=== PATIENT | female | born 1985 | race Caucasian/White ===

== ENCOUNTER 2017-10-27 05:30 | Inpatient (IN) | payer OTHER ==
[2017-10-27] MEDS ORDERED: RINGERS SOLUTION,LACTATED 1,000 ML IV ONE (06:28)
[2017-10-27] MEDS ORDERED: CITRIC ACID/SODIUM CITRATE 30 ML SOLUTION UDCUP PO ONE (06:30)
[2017-10-27] MEDS ORDERED: METOCLOPRAMIDE HCL 5 MG/ML 2 ML VIAL IVP ONE (06:30)
[2017-10-27 06:46] VITALS: BP 111/65
[2017-10-27 07:23] LABS: BASOPHILS % (AUTO) 0.2 % (0.0-2.0); EOSINOPHILS % (AUTO) 0.5 % (1.0-6.0); HEMATOCRIT 33.4 % (36-46); HEMOGLOBIN 11.7 g/dL (12.0-16.0); LYMPHOCYTES # (AUTO) 1.3 K/uL (1.0-4.8); LYMPHOCYTES % (AUTO) 14.8 % (22.0-44.0); MEAN CORPUSCULAR HEMOGLOBIN 32.7 pg (26.0-34.0); MEAN CORPUSCULAR VOLUME 93 fL (80-100); MONOCYTES # (AUTO) 0.6 K/uL (0.1-1.0); MONOCYTES % (AUTO) 6.4 % (2.0-9.0); NEUTROPHILS % (AUTO) 78.1 % (40.0-70.0); RED BLOOD CELL COUNT(AUTO) 3.58 MIL/uL (4.00-5.20); RED CELL DISTRIBUTION WIDTH 13.3 % (11.5-14.5)
[2017-10-27] MEDS ORDERED: LANOLIN 7 GM OINTMENT TP PRN (09:00)
[2017-10-27] MEDS ORDERED: ACETAMINOPHEN/CODEINE 300-30 MG TABLET PO PRN ×2 (09:00)
[2017-10-27] MEDS ORDERED: DEXTROSE 5%-0.45% SODIUM CHL 1,000 ML IV ONE (09:52)
[2017-10-27] MEDS ORDERED: MEPERIDINE-PF 25 MG/ML SYRINGE IVP PRN (10:00)
[2017-10-27] MEDS ORDERED: ONDANSETRON HCL 4 MG/2 ML VIAL IVP PRN ×2 (10:00)
[2017-10-27] MEDS ORDERED: DiphenhydrAMINE HCL 50 MG/ML VIAL IVP PRN (10:00)
[2017-10-27] MEDS ORDERED: NALOXONE HCL 0.4 MG/ML VIAL IVP PRN (10:00)
[2017-10-27] MEDS ORDERED: NALBUPHINE HCL 10 MG/ML VIAL IVP PRN ×3 (10:00)
[2017-10-27] MEDS ORDERED: MORPHINE SULFATE 10 MG/ML SYRINGE IVP PRN (10:00)
[2017-10-27] MEDS ORDERED: FentaNYL CITRATE-PF 100 MCG/2 ML VIAL IVP PRN ×2 (10:00)
[2017-10-27] MEDS: DEXTROSE 5%-0.45% SODIUM CHL 1,000 ML IV SCH ×4 (10:27→23:20)
[2017-10-27] MEDS: ACETAMINOPHEN 1000 MG/ISO-OSM 100 ML IV SCH ×2 (10:29→18:28)
[2017-10-27] MEDS ORDERED: OXYGEN THERAPY IH SCH ×2 (20:00)
[2017-10-27] MEDS: MAGNESIUM HYDROXIDE SUSPENSION 30 ML UDCUP PO SCH (21:23)
[2017-10-28] MEDS: ACETAMINOPHEN 1000 MG/ISO-OSM 100 ML IV SCH ×2 (01:55→11:00)
[2017-10-28] MEDS: IBUPROFEN 800 MG TABLET PO SCH ×4 (03:03→21:15)
[2017-10-28] MEDS ORDERED: OXYTOCIN 10 UNITS/ML VIAL IM ONE (05:15)
[2017-10-28] MEDS ORDERED: EPHEDrine SULFATE 50 MG/ML VIAL IM ONE (05:15)
[2017-10-28] MEDS ORDERED: PHENYLEPHRINE HCL 10 MG/ML VIAL IVP ONE (05:15)
[2017-10-28] MEDS: MAGNESIUM HYDROXIDE SUSPENSION 30 ML UDCUP PO SCH ×2 (08:31→21:00)
[2017-10-29] MEDS ORDERED: FentaNYL CITRATE-PF 100 MCG/2 ML VIAL IVP ONE (00:34)
[2017-10-29] MEDS ORDERED: MORPHINE SULFATE/PF 0.5 MG/ML 10 ML AMP IVP ONE (00:36)
[2017-10-29] MEDS: IBUPROFEN 800 MG TABLET PO SCH ×4 (02:34→20:25)
[2017-10-29] MEDS: MAGNESIUM HYDROXIDE SUSPENSION 30 ML UDCUP PO SCH ×2 (08:46→21:00)
[2017-10-30] MEDS: IBUPROFEN 800 MG TABLET PO SCH ×2 (02:34→08:25)
[2017-10-30] MEDS ORDERED: IBUP-2070 PO (08:38)
[2017-10-30] MEDS ORDERED: DSS100 PO (08:41)
[2017-10-30] MEDS ORDERED: FERR-89 PO (08:42)
[2017-10-30] MEDS ORDERED: ACET1TAB12 PO (08:45)
== END 2017-10-30 12:45 | disposition home or self-care (01) | DRG 766 ==
LOC: 4S 05:30 → NSY 14:30 → 4S 14:49 → PREOBSVTOIN 11-03 05:46
PROVIDERS: ADMIT Obstetrics & Gynecology; ATTEND Obstetrics & Gynecology
PROC: 10D00Z1 Extraction of Products of Conception, Low, Open Approach (ICD-10-PCS; principal; 2017-10-27)
DX: O32.8XX0 Maternal care for other malpresentation of fetus, not applicable or unspecified (principal); Z37.0 Single live birth; Z3A.39 39 weeks gestation of pregnancy
CPT/HCPCS: 86850; 86900; 86901; 87081; J0131; J0690; J2274; J2370; J2590; J2765; J3010; J3490